=== PATIENT | male | born 1945 | race Caucasian/White ===

== ENCOUNTER 2017-10-23 05:59 | Day surgery (SDC) | payer OTHER ==
[~2017-10-23 05:59] MED LIST: ROPIVacaine 0.5% PF 30 ML VIAL.
[2017-10-23] MEDS ORDERED: PROPOFOL 20 ML IV (06:47)
[2017-10-23] MEDS ORDERED: LIDOCAINE 2% PF Vial for OR 5 ML VIAL. (06:47)
[2017-10-23] MEDS ORDERED: LIDOCAINE 1% PF 2 ML VIAL. ID (07:00)
[2017-10-23] MEDS ORDERED: fentaNYL PF VIAL 100 MCG/2 ML VIAL IV (07:00)
[2017-10-23] MEDS ORDERED: IV RINGERS,LACTATED 1000ML 1,000 ML IV (07:00)
[2017-10-23] MEDS ORDERED: PROCHLORPERAZINE 10 MG/2 ML VIAL. IV (07:00)
[2017-10-23] MEDS ORDERED: ONDANSETRON PF 4 MG/2 ML VIAL. IV (07:00)
[2017-10-23] MEDS ORDERED: DEXAMETHASONE SOD PHOS 20 MG/5 ML VIAL. (07:23)
[2017-10-23] MEDS ORDERED: ONDANSETRON PF 4 MG/2 ML VIAL. (07:23)
[2017-10-23] MEDS ORDERED: PHENYLEPHRINE in 0.9% NACL PF 1 MG/10 ML SYRINGE. IV (07:29)
[2017-10-23] MEDS: BUPIVACAINE 0.5% 50 ML VIAL. INJ (07:40)
[2017-10-23] MEDS ORDERED: SEVOFLURANE 31 TO 60 MINUTES. IH (08:18)
[2017-10-23] MEDS ORDERED: fentaNYL PF VIAL 100 MCG/2 ML VIAL (08:23)
[2017-10-23] MEDS: fentaNYL PF VIAL 100 MCG/2 ML VIAL IV ×2 (08:31→08:36)
[2017-10-23] MEDS ORDERED: traMADol 50 MG TABLET (08:33)
[2017-10-23] MEDS ORDERED: traMADol 50 MG TABLET PO (08:45)
[2017-10-23] MEDS ORDERED: ceFAZolin 2GM PREMIX 2 GM/50 ML BAG IV (10:00)
== END 2017-10-23 09:14 | disposition home or self-care (01) ==
LOC: SURG 05:59
DX: S62.613A Displaced fracture of proximal phalanx of left middle finger, initial encounter for closed fracture (principal); S62.615A Displaced fracture of proximal phalanx of left ring finger, initial encounter for closed fracture; S62.617A Displaced fracture of proximal phalanx of left little finger, initial encounter for closed fracture; J44.9 Chronic obstructive pulmonary disease, unspecified; K21.9 Gastro-esophageal reflux disease without esophagitis; F31.9 Bipolar disorder, unspecified; F41.9 Anxiety disorder, unspecified; F43.10 Post-traumatic stress disorder, unspecified; M19.90 Unspecified osteoarthritis, unspecified site; Z86.19 Personal history of other infectious and parasitic diseases; Z98.890 Other specified postprocedural states; Z87.891 Personal history of nicotine dependence; Z79.899 Other long term (current) drug therapy; Z88.5 Allergy status to narcotic agent; Z88.8 Allergy status to other drugs, medicaments and biological substances; H40.9 Unspecified glaucoma; Z86.73 Personal history of transient ischemic attack (TIA), and cerebral infarction without residual deficits; F03.90 Unspecified dementia, unspecified severity, without behavioral disturbance, psychotic disturbance, mood disturbance, and anxiety; G62.9 Polyneuropathy, unspecified; F19.90 Other psychoactive substance use, unspecified, uncomplicated; D64.9 Anemia, unspecified; Z86.14 Personal history of Methicillin resistant Staphylococcus aureus infection; W23.1XXA Caught, crushed, jammed, or pinched between stationary objects, initial encounter; Y93.01 Activity, walking, marching and hiking; Y92.89 Other specified places as the place of occurrence of the external cause; Y99.8 Other external cause status
CPT/HCPCS: 26727; 76000; A7015; J0690; J1100; J2001; J2370; J2405; J2704; J2795; J3010; J3490; J7120